=== PATIENT | female | born 1935 | race Caucasian/White ===

== ENCOUNTER → 2018-11-30 | Outpatient (CLI) | payer OTHER ==
[~2018-11-30] MED LIST: ACET325 PO; AMOCLA500 PO; ASPI81CH PO; BISA10S PR; CALCAVITD PO; CALCAVITDA PO; CEPH250SUA PO; CYCL10 PO; Col-Rite100 MG PO; Colace100 MG PO; Cyclobenzaprine5 MG PO; DAILY VALUE1 EACH PO; DOCU100 PO; DULERA 200 MCG/13 GM INH; HYDR1TAB94 PO; LAVAP17G PO; LEVO750 PO; LOPE2C PO; METO25; METO25ER PO; MI ACID PO; MULTI VITAMIN1 EACH PO; MULTIVITAMIN; NASAL DECONGEST15 ML; Norco 5-325 Ta1 EACH PO; POLYOX WSR-3011 GM MC; Percocet 5-3251 EACH PO; Prednisone20 MG PO; Pyridium100 MG PO; SILENOR3 MG; Tylenol325 MG PO; Valtrex1000 MG PO; WARF2 PO; WARF3; WARF3 PO; [UNRECOGNIZED DRUG - OTHER] PO
== END | disposition home or self-care (01) ==
LOC: LAB SHORT 17:51 → LAB 17:51
DX: R30.0 Dysuria (principal)
CPT/HCPCS: 87086

== ENCOUNTER 2018-12-27 23:04 | Emergency (ER) | payer OTHER ==
[~2018-12-27] VITALS: Ht 160 cm; Wt 52.2 kg
[~2018-12-27 23:04] MED LIST changes: -ASPI81CH PO; -CEPH250SUA PO; -MULTIVITAMIN; -Pyridium100 MG PO
[2018-12-27 23:21] LABS: Source, Urine Catheter
[2018-12-27 23:23] LABS: Bilirubin, Urine Neg (Neg); Blood, Urine 2+ (Neg); Glucose Qualitative, Urine Neg (Neg); Ketones, Urine 1+ (Neg); Leukocyte Esterase, Urine 3+ (Neg); Nitrite, Urine Pos (Neg); Protein, Urine 3+ (Neg); Specific Gravity, Urine 1.025 (1.003-1.022); Urobilinogen, Urine NORM (Normal)
[2018-12-27 23:28] LABS: Appearance, Urine Hazy (Clear); Color, Urine Yellow (P-Yellow)
[2018-12-27 23:29] LABS: Bacteria Many /hpf; Red Blood Cells, Urine 0-2 /hpf (0-2); Squamous Epithelial Cells Few /hpf (Few); White Blood Cells, Urine TNTC /hpf (0-5)
[2018-12-27] MEDS ORDERED: ASPI81CH PO (23:34)
[2018-12-27] MEDS ORDERED: DOCU100 PO (23:35)
[2018-12-27] MEDS ORDERED: METO25ER PO (23:36)
[2018-12-27] MEDS ORDERED: MULTIVITAMIN (23:37)
[2018-12-27] MEDS ORDERED: Tylenol325 MG PO (23:38)
[2018-12-28] MEDS ORDERED: CEPH250SUA PO (00:21)
[2018-12-28] MEDS ORDERED: Pyridium100 MG PO (00:21)
== END 2018-12-28 01:40 | disposition home or self-care (01) ==
LOC: ER 23:04
PROVIDERS: Emergency Medicine
DX: S00.83XA Contusion of other part of head, initial encounter (principal); N39.0 Urinary tract infection, site not specified; W05.0XXA Fall from non-moving wheelchair, initial encounter; Z88.2 Allergy status to sulfonamides; Z88.8 Allergy status to other drugs, medicaments and biological substances; Z79.899 Other long term (current) drug therapy; Z79.01 Long term (current) use of anticoagulants; I48.91 Unspecified atrial fibrillation; Z87.891 Personal history of nicotine dependence
CPT/HCPCS: 70450; 72125; 81001; 87077; 87086; 87186; 99284-25; P9612

== ENCOUNTER → 2019-04-04 | Outpatient (CLI) | payer OTHER ==
[~2019-04-04] MED LIST changes: +ASPI81CH PO; +CEPH250SUA PO; +MULTIVITAMIN; +Pyridium100 MG PO
[2019-04-04 17:41] LABS: Bilirubin, Urine Neg (Neg); Blood, Urine 2+ (Neg); Glucose Qualitative, Urine Neg (Neg); Ketones, Urine Neg (Neg); Leukocyte Esterase, Urine 3+ (Neg); Nitrite, Urine Pos (Neg); Protein, Urine Neg (Neg); Specific Gravity, Urine 1.015 (1.003-1.022); Urobilinogen, Urine NORM (Normal)
[2019-04-04 17:46] LABS: Color, Urine Yellow (P-Yellow)
[2019-04-04 17:49] LABS: Amorphous Light (0-Heavy); Appearance, Urine Hazy (Clear); Bacteria Many /hpf; Mucus Light (0-Heavy); Squamous Epithelial Cells Few /hpf (Few); White Blood Cells, Urine 25-50 /hpf (0-5)
== END ==
LOC: LAB SHORT 16:47 → LAB 16:47
PROVIDERS: Family Medicine
DX: N39.0 Urinary tract infection, site not specified (principal)
CPT/HCPCS: 81001

== ENCOUNTER → 2019-04-16 | Outpatient (CLI) | payer OTHER ==
[2019-04-16 12:03] LABS: Bilirubin, Urine Neg (Neg); Blood, Urine Neg (Neg); Glucose Qualitative, Urine Neg (Neg); Ketones, Urine Neg (Neg); Leukocyte Esterase, Urine Neg (Neg); Nitrite, Urine Neg (Neg); Protein, Urine Neg (Neg); Urobilinogen, Urine NORM (Normal); pH, Urine 6.5 (5.0-8.0)
[2019-04-16 12:06] LABS: Appearance, Urine Clear (Clear); Color, Urine Yellow (P-Yellow)
== END | disposition home or self-care (01) ==
LOC: LAB SHORT 10:48 → LAB 10:48
PROVIDERS: Family Medicine
DX: N39.0 Urinary tract infection, site not specified (principal)
CPT/HCPCS: 81003

== ENCOUNTER → 2019-05-10 | Outpatient (CLI) | payer OTHER ==
[2019-05-10 15:29] LABS: Bilirubin, Urine Neg (Neg); Blood, Urine 2+ (Neg); Glucose Qualitative, Urine Neg (Neg); Ketones, Urine Neg (Neg); Leukocyte Esterase, Urine 3+ (Neg); Nitrite, Urine Neg (Neg); Protein, Urine 2+ (Neg); Urobilinogen, Urine NORM (Normal)
[2019-05-10 15:50] LABS: Appearance, Urine Cloudy (Clear); Color, Urine Yellow (P-Yellow)
[2019-05-10 15:54] LABS: Amorphous Light (0-Heavy); Bacteria Many /hpf; Red Blood Cells, Urine 0-2 /hpf (0-2); Squamous Epithelial Cells Few /hpf (Few); White Blood Cells, Urine TNTC /hpf (0-5)
== END ==
LOC: LAB 13:18 → LAB SHORT 13:18
PROVIDERS: Family Medicine
DX: N39.0 Urinary tract infection, site not specified (principal)
CPT/HCPCS: 81001; 87086

== ENCOUNTER 2019-09-07 07:10 | Emergency (ER) | payer OTHER ==
[~2019-09-07] VITALS: Ht 157.5 cm; Wt 62.1 kg
== END 2019-09-07 08:26 | disposition home or self-care (01) ==
LOC: ER 07:10
DX: J02.9 Acute pharyngitis, unspecified (principal); I48.91 Unspecified atrial fibrillation; Z88.2 Allergy status to sulfonamides; Z88.8 Allergy status to other drugs, medicaments and biological substances; Z79.82 Long term (current) use of aspirin; Z79.899 Other long term (current) drug therapy; Z87.891 Personal history of nicotine dependence
CPT/HCPCS: 99283

== ENCOUNTER → 2019-11-22 | Outpatient (CLI) | payer OTHER ==
[2019-11-22 17:34] LABS: Bilirubin, Urine Neg (Neg); Blood, Urine 1+ (Neg); Glucose Qualitative, Urine Neg (Neg); Ketones, Urine 1+ (Neg); Leukocyte Esterase, Urine 3+ (Neg); Nitrite, Urine Neg (Neg); Protein, Urine 1+ (Neg); Specific Gravity, Urine 1.015 (1.003-1.022); Urobilinogen, Urine 1+ (Normal); pH, Urine 6.5 (5.0-8.0)
[2019-11-22 17:44] LABS: Appearance, Urine Cloudy (Clear); Color, Urine Yellow (P-Yellow)
[2019-11-22 17:45] LABS: Bacteria Many /hpf; Squamous Epithelial Cells Few /hpf (Few); White Blood Cells, Urine TNTC /hpf (0-5)
== END | disposition home or self-care (01) ==
LOC: LAB 15:43 → LAB SHORT 15:43
PROVIDERS: Family Medicine
DX: N39.0 Urinary tract infection, site not specified (principal)
CPT/HCPCS: 81001; 87077; 87086; 87186